=== PATIENT | female | born 1955 | race Two or more races ===

== ENCOUNTER → 2024-04-28 | Outpatient (CLI) | payer MEDICARE, MEDICAID, SELFPAY ==
[2024-04-28 11:50] LABS: Basophils % (Auto) 0 % (0-2.5); Eosinophils # (Auto) 0.2 Thou/mm3 (0.0-0.5); Eosinophils % (Auto) 3 % (0-10); Hemoglobin 11.2 g/dL (12.0-16.0); Immature Granulocytes % (Auto) 0 % (0-0); Immature Granulocytes Auto 0.02 Thou/mm3 (0.00-0.00); Lymphocytes # (Auto) 1.8 Thou/mm3 (1.0-4.8); Lymphocytes % (Auto) 27 % (10-50); Mean Corpuscular HGB Conc 32.9 g/dl (31.0-37.0); Mean Corpuscular Hemoglobin 30.4 pg (25.0-35.0); Mean Corpuscular Volume 92 fL (80-100); Monocytes # (Auto) 0.6 Thou/mm3 (0.0-0.8); Monocytes % (Auto) 9 % (0-12); Neutrophils # (Auto) 4.1 Thou/mm3 (1.8-7.7); Neutrophils % (Auto) 61 % (37-80); Nucleated Red Blood Cell % 0 /100 WBC (0); Platelet Count 169 Thou/mm3 (140-440); RDW Standard Deviation 42.9 fL (36.4-46.3); Red Blood Count 3.68 Miln/mm3 (4.00-5.20); White Blood Count 6.7 Thou/mm3 (3.6-11.0)
[2024-04-28 12:21] LABS: Vitamin D 25 Hydroxy Total 26.6 ng/mL (7.3-40.2)
[2024-04-28 12:23] LABS: Albumin, Serum 3.9 gm/dL (3.4-4.8); Anion Gap 8 (7-16); BUN/Creatinine Ratio 21 Ratio (12-20); Blood Urea Nitrogen 27 mg/dL (9-23); Calcium (Corrected) 9.1 mg/dL (8.5-10.1); Carbon Dioxide 27.2 mMol/L (20.0-31.0); Chloride 101 mMol/L (98-107); Creatinine (Component) 1.3 mg/dL (0.6-1.3); Glucose 306 mg/dL (74-106); Osmolality,Calculated 289 (275-295); Phosphorous 3.2 mg/dL (2.4-5.1); Potassium 4.3 mMol/L (3.4-5.1); Sodium 136 mMol/L (136-145); eGFR 44 See Note
== END | disposition home or self-care (01) ==
LOC: COPL 11:17
PROVIDERS: PCP Family Medicine; Referring Provider Internal Medicine; Visit Provider Internal Medicine
DX: I12.9 Hypertensive chronic kidney disease with stage 1 through stage 4 chronic kidney disease, or unspecified chronic kidney disease (principal); E11.22 Type 2 diabetes mellitus with diabetic chronic kidney disease; N18.31 Chronic kidney disease, stage 3a; R00.0 Tachycardia, unspecified; E56.9 Vitamin deficiency, unspecified; Z85.038 Personal history of other malignant neoplasm of large intestine
CPT/HCPCS: 36415; 80069; 82306; 85025

== ENCOUNTER → 2024-08-15 | Outpatient (CLI) | payer MEDICARE, MEDICAID, SELFPAY ==
[2024-08-15 10:50] LABS: Albumin, Serum 4.1 gm/dL (3.4-4.8); Anion Gap 9 (7-16); BUN/Creatinine Ratio 18 Ratio (12-20); Blood Urea Nitrogen 25 mg/dL (9-23); Calcium 8.7 mg/dL (8.3-10.6); Calcium (Corrected) 8.7 mg/dL (8.5-10.1); Carbon Dioxide 25.7 mMol/L (20.0-31.0); Chloride 105 mMol/L (98-107); Creatinine (Component) 1.4 mg/dL (0.6-1.3); Glucose 141 mg/dL (74-106); Osmolality,Calculated 285 (275-295); Sodium 140 mMol/L (136-145); eGFR 40 See Note
== END | disposition home or self-care (01) ==
LOC: COPL 09:38
PROVIDERS: Referring Provider Internal Medicine; Visit Provider Internal Medicine
DX: I12.9 Hypertensive chronic kidney disease with stage 1 through stage 4 chronic kidney disease, or unspecified chronic kidney disease (principal); E11.22 Type 2 diabetes mellitus with diabetic chronic kidney disease; N18.31 Chronic kidney disease, stage 3a; Z85.038 Personal history of other malignant neoplasm of large intestine; R00.0 Tachycardia, unspecified; E56.9 Vitamin deficiency, unspecified
CPT/HCPCS: 36415; 80069

== ENCOUNTER → 2024-10-23 | Outpatient (CLI) | payer MEDICARE, MEDICAID, SELFPAY ==
[2024-10-23 10:42] LABS: Basophils # (Auto) 0.0 Thou/mm3 (0.0-0.2); Basophils % (Auto) 1 % (0-2.5); Eosinophils # (Auto) 0.1 Thou/mm3 (0.0-0.5); Eosinophils % (Auto) 2 % (0-10); Hematocrit 35.8 % (36.0-46.0); Hemoglobin 11.9 g/dL (12.0-16.0); Immature Granulocytes Auto 0.02 Thou/mm3 (0.00-0.00); Immature Reticulocyte Fraction 11.8 % (3.0-15.9); Lymphocytes # (Auto) 2.0 Thou/mm3 (1.0-4.8); Lymphocytes % (Auto) 28 % (10-50); Mean Corpuscular HGB Conc 33.2 g/dl (31.0-37.0); Mean Corpuscular Hemoglobin 30.6 pg (25.0-35.0); Mean Corpuscular Volume 92 fL (80-100); Monocytes # (Auto) 0.5 Thou/mm3 (0.0-0.8); Monocytes % (Auto) 7 % (0-12); Neutrophils # (Auto) 4.5 Thou/mm3 (1.8-7.7); Neutrophils % (Auto) 63 % (37-80); Nucleated Red Blood Cell # 0.00 Thou/mm3 (0.00-0.00); Nucleated Red Blood Cell % 0 /100 WBC (0); Platelet Count 177 Thou/mm3 (140-440); RDW Standard Deviation 43.3 fL (36.4-46.3); Red Blood Count 3.89 Miln/mm3 (4.00-5.20); Reticulocyte % (Auto) 2.3 % (0.5-1.5); Reticulocyte Absolute Auto 87.9 Biln/L (25.0-75.0); Reticulocyte Hgb Content 33.9 pg (28.0-35.0); White Blood Count 7.1 Thou/mm3 (3.6-11.0)
[2024-10-23 10:53] LABS: Alanine Aminotransferase 31 U/L (10-49); Albumin, Serum 4.5 gm/dL (3.4-4.8); Albumin/Globulin Ratio 1.3 (1.2-2.2); Alkaline Phosphatase 120 U/L (46-116); Anion Gap 9 (7-16); Aspartate Amino Transferase 37 U/L (0-34); BUN/Creatinine Ratio 14 Ratio (12-20); Bilirubin,Total 0.6 mg/dL (0.3-1.2); Blood Urea Nitrogen 18 mg/dL (9-23); Calcium 10.3 mg/dL (8.3-10.6); Calcium (Corrected) 10.3 mg/dL (8.5-10.1); Carbon Dioxide 27.5 mMol/L (20.0-31.0); Chloride 104 mMol/L (98-107); Creatinine (Component) 1.3 mg/dL (0.6-1.3); Globulin 3.6 gm/dL (2.3-3.5); Glucose 182 mg/dL (74-106); Osmolality,Calculated 286 (275-295); Potassium 4.9 mMol/L (3.4-5.1); Sodium 140 mMol/L (136-145); Total Protein 8.1 gm/dL (5.7-8.2); eGFR 44 See Note
[2024-10-23 11:21] LABS: Ferritin 347 ng/mL (7.3-270.7); Folate 18.95 ng/mL (>5.38); Iron 65 mcg/dL (50-170); Percent Iron Saturation 21 % (20-55); Total Iron Binding Capacity 307 mcg/dL (250-425); Unsaturated Iron Binding 242 (225-295); Vitamin B12 536 pg/mL (211-911)
== END | disposition home or self-care (01) ==
LOC: COPL 09:52
PROVIDERS: PCP Physician Assistant; Referring Provider Nurse Practitioner Family; Visit Provider Nurse Practitioner Family
DX: C18.7 Malignant neoplasm of sigmoid colon (principal)
CPT/HCPCS: 36415; 80053; 82607; 82728; 82746; 83540; 83550; 85025; 85046

== ENCOUNTER 2024-10-31 14:19 | Outpatient (RCR) | payer MEDICARE, MEDICAID, SELFPAY ==
--- NOTE | 2024-11-06 02:11 | CTCFLWUP_ITS ---
Patient: DOMINIK CAMPUZANO : 1955 Page 6 of 7 FOLLOW UP NOTE DATE OF SERVICE: 10/31/2024 NAME: DOMINIK CAMPUZANO ACCOUNT: [id number] : 1955 AGE: 69 INTERVAL HISTORY: Patient is here for follow-up ONCOLOGY HISTORY: DIAGNOSIS: Stage IIa (T3, N0) sigmoid colon adenocarcinoma with perineural invasion (11/10/2021), MSI stable S/p adjuvant 5-FU and leucovorin (01/29/2022 - 08/27/2022) History of iron deficiency anemia, status post Venofer. Type 2 diabetes. Hypertension REASON FOR TODAY?S VISIT: This is office follow-up visit for colon cancer. Malignant neoplasm of sigmoid colon [ICD10] C18.7 DATE OF DIAGNOSIS: 11/10/2021 STAGE/TNM: Stage IIa and T3a N0 TREATMENT HISTORY: Care?Plan Start?Date Cycle Day Intent VENOfer?200mg?IV?wkly?for?10?weeks 01/22/2022 1 70 Palliative 5FU?500?LV?20 01/29/2022 1 7 Palliative HISTORY OF PRESENT ILLNESS: Ms. Campuzano is here at [facility]. Patient reports feeling well. Patient denies any concerns or complaints. DEXA from 01/12/2024 shows osteopenia. Patient currently not taking calcium supplements. Patient denies any recent dental work, denies any plans for upcoming dental work. Next surveillance colonoscopy is due 10/2024. Patient reports normal bowel movements. Denies any cough, chest pain, nausea, vomiting or diarrhea. Denies any weight loss or loss of appetite. Denies bloody or black stools. Ambulating well without any help HISTORY: Dominik Campuzano is a 69-year-old SPA speaking female with history of type 2 diabetes as well as hypertension recently had screening colonoscopy and found to have a mass in the sigmoid colon region. 10/08/2021: Ms. Campuzano had colonoscopy and biopsy of the sigmoid colon mass? 11/10/2021: Ms. Campuzano had sigmoid colectomy. 12/22/2021: Hemoglobin 9.9, MCV 83, WBC 8.8, ANC 5.6, platelets 216,000, creatinine 1.3, iron saturation 8%, ferritin 11 12/25/2021: PET/CT scan? 01/01/2022: MSI? 01/22/2022?04/30/2022: Ms. Campuzano completed 2 g of Venofer infusions. 01/29/2022?08/27/2022: Ms. Campuzano treated with adjuvant 5-FU and leucovorin on a weekly regimen. 11/16/2022: CEA 1.1. 12/23/2022: Bilateral mammogram 12/23/2022: ultrasound breast bilateral complete 01/21/2023: Ultrasound right breast 01/23/2023: Right breast diagnostic mammogram 03/01/2023: Hemoglobin 11.2, hematocrit 34.1, MCV 94, ANC 3.9, platelets 174,000, WBC 6.2, CEA 1.4 07/22/2023: Hemoglobin 11.5, hematocrit 33.4, MCV 91, ANC 3.8, platelets 174,000, WBC 6.1, CEA 1.7, iron saturation 27% ferritin 314, B12 is 613, folate is>24.00 11/26/2023: Hemoglobin 10.8, MCV 92, ANC 3.1, platelets 263,003, WBC 5.7, CEA 1.6, iron saturation 20%, ferritin 404, B12 is 577, folate 14.76 01/12/2024: DEXA-osteopenia 01/25/2024: Bilateral mammograms-benign findings 1 year follow-up recommended OTHER MEDICAL HISTORY/CONDITIONS: FAMILY HISTORY: ?Clone Family Hx? 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 alendronate - 35 mg 1 tab one tab po q weekly 2. Citracal + D Slow Release - 600 mg-12.5 mcg (500 unit) 1 tab one tab po twice a day 3. glipizide - 2.5 mg Daily 4. Inderal - 20 mg Daily 5. losartan-hydrochlorothiazide - 50 mg Daily 6. pravastatin - 40 mg Daily?Palabra Meds? Medications Last Reconciled by Dominik Escobedo MA on 01/27/2024 ALLERGIES: No Known Drug Allergies REVIEW OF SYSTEMS: A complete 14-point review of systems was performed and is negative except as noted in interval history. PHYSICAL EXAMINATION: VITAL SIGNS: Temperature?97.7, B/P?129/79, Oxygen?Saturation?97% PAIN: 0 - No pain GENERAL APPEARANCE: Appears well, in no apparent distress, appropriately interactive. HEENT: Normocephalic, no temporal wasting, normal conjunctiva, no scleral icterus, normal hearing, lips without lesions, neck normal range of motion. CARDIOVASCULAR: Not assessed. PULMONARY: Normal respiratory effort, no respiratory distress or use of accessory muscles, speaking in full sentences, no tachypnea. EXTREMITIES: No pedal edema or cyanosis. SKIN: Normal skin appearance. NEUROLOGIC: Alert and oriented x4. PSHYCHIATRIC: Appropriate affect, mood normal, behavior normal, intact thought and speech. LABORATORY DATA: I have personally reviewed and interpreted each of the patient?s relevant lab tests, abnormal findings are below: Date 10/23/24 ??WHITE?BLOOD?COUNT?(Thou/mm3) 7.1 ??RED?BLOOD?COUNT?(Miln/mm3) 3.89?L ??HEMOGLOBIN?(gm/dl) 11.9?L ??HEMATOCRIT?(%) 35.8?L ??PLATELET?COUNT?(Thou/mm3) 177 ??NEUTROPHILS?%,?AUTO?(%) 63 ??LYMPH?%,?AUTO?(%) 28 ??NEUTROPHILS,?AUTO?(Thou/mm3) 4.5 ??GLUCOSE,RANDOM?(mg/dL) 182?H ??BLOOD?UREA?NITROGEN?(mg/dL) 18 ??CREATININE?(mg/dL) 1.30 ??SODIUM?(mmol/L) 140 ??POTASSIUM?(mmol/L) 4.9 ??CHLORIDE?(mmol/L) 104 ??CrCl?(CandG)?(ml/min) 39.75 ??AST/SGOT?(Unit/L) 37?H ??ALT/SGPT?(Unit/L) 31 ??ALKALINE?PHOSPHATASE?(Unit/L) 120?H ??BILIRUBIN,?TOTAL?(mg/dL) 0.6 ??PROTEIN?TOTAL?(gm/dl) 8.1 ??ALBUMIN,?SERUM?(gm/dl) 4.5 ??GLOBULIN?(gm/dl) 3.6?H ??ALBUMIN/GLOBULIN?RATIO 1.3 ??CALCIUM,?SERUM?(mg/dL) 10.3 ??CALCIUM?SERUM?(CORRECTED)?(mg/dL) 10.3?H ??RETICULOCYTE?ABSOLUTE?AUTO?(Biln/L) 87.9?H ??TOTAL?IRON?BINDING?CAP?(S*)?(mcg/dL) 307 ??UNBOUND?IBC?(mcg/dL) 242 ASSESSMENT/PLAN: Colon adenocarcinoma in 2021 Stage II aT3 N0 s/p chemotherapy with 5-FU and leucovorin No evidence of recurrence Gela testing CT scan chest abdomen pelvis with IV contrast every 6 months for 5 years Colonoscopy every 3 years or 5 years once to negative Patient have bone ache as well as hypercalcemia Will do bone scan RTC after the results ORDERS: Order # Description [id number] Bone Scan, Whole body [id number] Bone Scan, Whole body + DXA L-Spine and Hip [id number] CEA [id number] Follow Up 2 Months RETURN TO CLINIC: I reviewed the diagnosis, prognosis, and recommended treatment/procedure options with the patient (and/or their legal territory account representative), including the potential benefits, risks, side effects and alternative therapies. We also discussed the option of no treatment and the possibility of clinical trial participation, if applicable. All questions were addressed, and they demonstrated understanding. They provided informed consent to proceed with the proposed plan of care. BILLING AND COMPLIANCE: I reviewed external records from providers outside my specialty as summarized above. I spent a total of 50 minutes on this patient?s care on the day of their visit excluding time spent related to any billed procedures. This time includes time spent with the patient as well as time spent documenting in the medical record, reviewing patients records and tests, obtaining history, placing orders, communicating with other healthcare professionals, counseling the patient, family or caregiver, and/or care coordination for the diagnoses above. Electronically Signed by: Alec Valdivia MD T: 2:09 AM CC: Yg?Spring,? PCP: Skinny Birmingham Referring: Skinny Birmingham This document was completed utilizing speech recognition software. Grammatical errors, random word insertions, pronoun errors, and incomplete sentences are an occasional consequence of this system due to software limitations, ambient noise, and hardware issues. Any formal questions or concerns about the content, text or information contained within the body of this dictation should be directly addressed to the provider for clarification.
== END 2024-11-26 23:59 | disposition home or self-care (01) ==
LOC: SCTC 14:19
PROVIDERS: PCP Nurse Practitioner Family; Referring Provider Family Medicine; Visit Provider Internal Medicine Hematology & Oncology
DX: Z08 Encounter for follow-up examination after completed treatment for malignant neoplasm (principal); Z85.038 Personal history of other malignant neoplasm of large intestine; Z90.49 Acquired absence of other specified parts of digestive tract; E83.52 Hypercalcemia
CPT/HCPCS: 99213; G0463

== ENCOUNTER → 2024-12-05 | Outpatient (CLI) | payer MEDICARE, MEDICAID, SELFPAY ==
--- NOTE | 2024-12-05 | XR_ITS ---
Examination: Bone scan whole body, radioisotope Date and time of exam: December 05, 2024 0845 hours INDICATIONS: Diagnosis malignant neoplasm sigmoid colon, post chemotherapy 2 years ago, restaging Technique: Study has been performed with intravenous administration of 24.6 mci 99M technetium MDP. Anterior, posterior whole body images are obtained. Images have been obtained including the lower extremities. Findings: Asymmetric uptake over the left knee Mild increased uptake about the ankles Subtle increased uptake right hip IMPRESSION: Positive bone scan but not specific for osseous metastatic disease Recommend AP pelvis right hip films follow-up
== END | disposition home or self-care (01) ==
LOC: SNUC 08:09
PROVIDERS: Referring Provider Internal Medicine Hematology & Oncology; Visit Provider Internal Medicine Hematology & Oncology
DX: R93.7 Abnormal findings on diagnostic imaging of other parts of musculoskeletal system (principal); C18.7 Malignant neoplasm of sigmoid colon
CPT/HCPCS: 78306; A9503

== ENCOUNTER 2025-01-02 10:20 | Outpatient (RCR) | payer MEDICARE, MEDICAID, SELFPAY ==
--- NOTE | 2025-01-02 11:17 | CTCFLWUP_ITS ---
Patient: DOMINIK CAMPUZANO : 1955 Page 6 of 8 FOLLOW UP NOTE DATE OF SERVICE: 01/02/2025 NAME: DOMINIK CAMPUZANO ACCOUNT: [id number] : 1955 AGE: 69 INTERVAL HISTORY: Patient is here for follow-up. Patient is here to follow-up on scanning results. No new complaints. Do not take calcium supplement as last time her calcium was high. No new change in her appetite or bowel and bladder habits. Weight is stable ONCOLOGY HISTORY: DIAGNOSIS: Stage IIa (T3, N0) sigmoid colon adenocarcinoma with perineural invasion (11/10/2021), MSI stable S/p adjuvant 5-FU and leucovorin (01/29/2022 - 08/27/2022) History of iron deficiency anemia, status post Venofer. Type 2 diabetes. Hypertension REASON FOR TODAY?S VISIT: This is office follow-up visit for colon cancer. Malignant neoplasm of sigmoid colon [ICD10] C18.7 DATE OF DIAGNOSIS: 11/10/2021 STAGE/TNM: Stage IIa and T3a N0 TREATMENT HISTORY: Care?Plan Start?Date Cycle Day Intent VENOfer?200mg?IV?wkly?for?10?weeks 01/22/2022 1 70 Palliative 5FU?500?LV?20 01/29/2022 1 7 Palliative HISTORY OF PRESENT ILLNESS: Ms. Campuzano is here at [facility]. Patient reports feeling well. Patient denies any concerns or complaints. DEXA from 01/12/2024 shows osteopenia. Patient currently not taking calcium supplements. Patient denies any recent dental work, denies any plans for upcoming dental work. Next surveillance colonoscopy is due 10/2024. Patient reports normal bowel movements. Denies any cough, chest pain, nausea, vomiting or diarrhea. Denies any weight loss or loss of appetite. Denies bloody or black stools. Ambulating well without any help HISTORY: Dominik Campuzano is a 69-year-old SPA speaking female with history of type 2 diabetes as well as hypertension recently had screening colonoscopy and found to have a mass in the sigmoid colon region. 10/08/2021: Ms. Campuzano had colonoscopy and biopsy of the sigmoid colon mass? 11/10/2021: Ms. Campuzano had sigmoid colectomy. 12/22/2021: Hemoglobin 9.9, MCV 83, WBC 8.8, ANC 5.6, platelets 216,000, creatinine 1.3, iron saturation 8%, ferritin 11 12/25/2021: PET/CT scan? 01/01/2022: MSI? 01/22/2022?04/30/2022: Ms. Campuzano completed 2 g of Venofer infusions. 01/29/2022?08/27/2022: Ms. Campuzano treated with adjuvant 5-FU and leucovorin on a weekly regimen. 11/16/2022: CEA 1.1. 12/23/2022: Bilateral mammogram 12/23/2022: ultrasound breast bilateral complete 01/21/2023: Ultrasound right breast 01/23/2023: Right breast diagnostic mammogram 03/01/2023: Hemoglobin 11.2, hematocrit 34.1, MCV 94, ANC 3.9, platelets 174,000, WBC 6.2, CEA 1.4 07/22/2023: Hemoglobin 11.5, hematocrit 33.4, MCV 91, ANC 3.8, platelets 174,000, WBC 6.1, CEA 1.7, iron saturation 27% ferritin 314, B12 is 613, folate is>24.00 11/26/2023: Hemoglobin 10.8, MCV 92, ANC 3.1, platelets 263,003, WBC 5.7, CEA 1.6, iron saturation 20%, ferritin 404, B12 is 577, folate 14.76 01/12/2024: DEXA-osteopenia 01/25/2024: Bilateral mammograms-benign findings 1 year follow-up recommended OTHER MEDICAL HISTORY/CONDITIONS: FAMILY HISTORY: 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 alendronate - 35 mg 1 tab one tab po q weekly 2. Citracal + D Slow Release - 600 mg-12.5 mcg (500 unit) 1 tab one tab po twice a day 3. glipizide - 2.5 mg Daily 4. Inderal - 20 mg Daily 5. losartan-hydrochlorothiazide - 50 mg Daily 6. pravastatin - 40 mg Daily Medications Last Reconciled by Dominik Escobedo MA on 01/27/2024 ALLERGIES: No Known Drug Allergies REVIEW OF SYSTEMS: A complete 14-point review of systems was performed and is negative except as noted in interval history. PHYSICAL EXAMINATION: VITAL SIGNS: PAIN: 0 - No pain ECOG Performance Status: 0 - Asymptomatic and fully active GENERAL APPEARANCE: Appears well, in no apparent distress, appropriately interactive. HEENT: Normocephalic, no temporal wasting, normal conjunctiva, no scleral icterus, normal hearing, lips without lesions, neck normal range of motion. CARDIOVASCULAR: Not assessed. PULMONARY: Normal respiratory effort, no respiratory distress or use of accessory muscles, speaking in full sentences, no tachypnea. EXTREMITIES: No pedal edema or cyanosis. SKIN: Normal skin appearance. NEUROLOGIC: Alert and oriented x4. PSHYCHIATRIC: Appropriate affect, mood normal, behavior normal, intact thought and speech. LABORATORY DATA: I have personally reviewed and interpreted each of the patient?s relevant lab tests, abnormal findings are below: Date 10/23/24 ??WHITE?BLOOD?COUNT?(Thou/mm3) 7.1 ??RED?BLOOD?COUNT?(Miln/mm3) 3.89?L ??HEMOGLOBIN?(gm/dl) 11.9?L ??HEMATOCRIT?(%) 35.8?L ??PLATELET?COUNT?(Thou/mm3) 177 ??NEUTROPHILS?%,?AUTO?(%) 63 ??LYMPH?%,?AUTO?(%) 28 ??NEUTROPHILS,?AUTO?(Thou/mm3) 4.5 ??GLUCOSE,RANDOM?(mg/dL) 182?H ??BLOOD?UREA?NITROGEN?(mg/dL) 18 ??CREATININE?(mg/dL) 1.30 ??SODIUM?(mmol/L) 140 ??POTASSIUM?(mmol/L) 4.9 ??CHLORIDE?(mmol/L) 104 ??CrCl?(CandG)?(ml/min) 39.75 ??AST/SGOT?(Unit/L) 37?H ??ALT/SGPT?(Unit/L) 31 ??ALKALINE?PHOSPHATASE?(Unit/L) 120?H ??BILIRUBIN,?TOTAL?(mg/dL) 0.6 ??PROTEIN?TOTAL?(gm/dl) 8.1 ??ALBUMIN,?SERUM?(gm/dl) 4.5 ??GLOBULIN?(gm/dl) 3.6?H ??ALBUMIN/GLOBULIN?RATIO 1.3 ??CALCIUM,?SERUM?(mg/dL) 10.3 ??CALCIUM?SERUM?(CORRECTED)?(mg/dL) 10.3?H ??RETICULOCYTE?ABSOLUTE?AUTO?(Biln/L) 87.9?H ??TOTAL?IRON?BINDING?CAP?(S*)?(mcg/dL) 307 ??UNBOUND?IBC?(mcg/dL) 242 ASSESSMENT/PLAN: Colon adenocarcinoma in 2021 Stage II aT3 N0 s/p chemotherapy with 5-FU and leucovorin No evidence of recurrence Naterra is pending CT scan chest abdomen pelvis with IV contrast every 6 months for 5 years Colonoscopy every 3 years or 5 years once to negative Patient have bone ache as well as hypercalcemia Bone scan shows arthritis Patient do not have any complaints with the pain in the right upper quadrant or abdominal discomfort. Patient's alk phos is mildly elevated Will get a bone density and if needed start her on Zometa Advised to follow-up with her kidney specialist to make sure her anemia is not associated from her kidney disease Patient's iron studies B12 folic acid all within normal limit Will check erythropoietin level RTC 6 months ORDERS: Order # Description [id number] 3D Mammogram Screening + Bilateral [id number] Comprehensive Metabolic Panel - 12 + CBC with Auto Diff + CEA [id number] Erythropoieten Level [id number] MD Follow Up 6 Month RETURN TO CLINIC: I reviewed the diagnosis, prognosis, and recommended treatment/procedure options with the patient (and/or their legal field representative), including the potential benefits, risks, side effects and alternative therapies. We also discussed the option of no treatment and the possibility of clinical trial participation, if applicable. All questions were addressed, and they demonstrated understanding. They provided informed consent to proceed with the proposed plan of care. BILLING AND COMPLIANCE: I reviewed external records from providers outside my specialty as summarized above. I spent a total of 50 minutes on this patient?s care on the day of their visit excluding time spent related to any billed procedures. This time includes time spent with the patient as well as time spent documenting in the medical record, reviewing patients records and tests, obtaining history, placing orders, communicating with other healthcare professionals, counseling the patient, family or caregiver, and/or care coordination for the diagnoses above. Electronically Signed by: Alec Valdivia MD T: 11:14 AM CC: Yg?Spring? PCP: Alec Valdivia Referring: Alec Valdivia This document was completed utilizing speech recognition software. Grammatical errors, random word insertions, pronoun errors, and incomplete sentences are an occasional consequence of this system due to software limitations, ambient noise, and hardware issues. Any formal questions or concerns about the content, text or information contained within the body of this dictation should be directly addressed to the provider for clarification.
== END 2025-01-26 23:59 | disposition home or self-care (01) ==
LOC: SCTC 10:20
PROVIDERS: PCP Nurse Practitioner Family; Referring Provider Internal Medicine Hematology & Oncology; Visit Provider Internal Medicine Hematology & Oncology
DX: Z08 Encounter for follow-up examination after completed treatment for malignant neoplasm (principal); Z85.038 Personal history of other malignant neoplasm of large intestine; Z92.21 Personal history of antineoplastic chemotherapy; E83.52 Hypercalcemia; M19.90 Unspecified osteoarthritis, unspecified site; Z86.2 Personal history of diseases of the blood and blood-forming organs and certain disorders involving the immune mechanism; R74.8 Abnormal levels of other serum enzymes
CPT/HCPCS: 99213; G0463

== ENCOUNTER → 2025-01-26 | Outpatient (CLI) | payer MEDICARE, MEDICAID, SELFPAY ==
--- NOTE | 2025-01-26 09:00 | XR_ITS ---
Examination: Screening digital mammography, bilateral Computer aided detection 3-D breast Tomosynthesis, bilateral Date and time of exam: January 26, 2025, 0851 hours, compared to mammograms dating to January 22, 2017 Indication: Screening Technique: Nonmagnified MLO, CC views of the breasts to been obtained, reconstructed from 3-D Tomosynthesis images. R2 computer aided detection program utilized for evaluation of suspicious masses and/or abnormal calcifications. 3-D Tomosynthesis images obtained. Findings: The breasts are heterogeneously dense, which may obscure small masses Skin lesion inner left breast 10 mm focal asymmetry retroareolar region right breast Impression: BI-RADS Category 0: Incomplete: Need additional imaging evaluation Recommend follow-up spot tomographic views of 10 mm focal asymmetry retroareolar region right breast as well as bilateral breast sonography to complete work-up
== END | disposition home or self-care (01) ==
LOC: CDIM 08:42
PROVIDERS: PCP Family Medicine; Referring Provider Internal Medicine Hematology & Oncology; Visit Provider Internal Medicine Hematology & Oncology
DX: Z12.31 Encounter for screening mammogram for malignant neoplasm of breast (principal); R92.8 Other abnormal and inconclusive findings on diagnostic imaging of breast; N64.89 Other specified disorders of breast; C18.7 Malignant neoplasm of sigmoid colon
CPT/HCPCS: 77063; 77067

== ENCOUNTER → 2025-02-02 | Outpatient (CLI) | payer MEDICARE, MEDICAID, SELFPAY ==
[2025-02-02 10:38] LABS: Basophils # (Auto) 0.0 Thou/mm3 (0.0-0.2); Basophils % (Auto) 1 % (0-2.5); Eosinophils # (Auto) 0.2 Thou/mm3 (0.0-0.5); Eosinophils % (Auto) 2 % (0-10); Hematocrit 34.8 % (36.0-46.0); Hemoglobin 11.5 g/dL (12.0-16.0); Immature Granulocytes Auto 0.05 Thou/mm3 (0.00-0.00); Lymphocytes # (Auto) 2.3 Thou/mm3 (1.0-4.8); Lymphocytes % (Auto) 33 % (10-50); Mean Corpuscular HGB Conc 33.0 g/dl (31.0-37.0); Mean Corpuscular Hemoglobin 30.0 pg (25.0-35.0); Mean Corpuscular Volume 91 fL (80-100); Monocytes # (Auto) 0.5 Thou/mm3 (0.0-0.8); Monocytes % (Auto) 8 % (0-12); Neutrophils # (Auto) 3.9 Thou/mm3 (1.8-7.7); Neutrophils % (Auto) 56 % (37-80); Nucleated Red Blood Cell # 0.00 Thou/mm3 (0.00-0.00); Nucleated Red Blood Cell % 0 /100 WBC (0); Platelet Count 181 Thou/mm3 (140-440); RDW Standard Deviation 40.6 fL (36.4-46.3); Red Blood Count 3.83 Miln/mm3 (4.00-5.20); White Blood Count 7.0 Thou/mm3 (3.6-11.0)
[2025-02-02 10:54] LABS: Albumin, Serum 4.3 gm/dL (3.4-4.8); Anion Gap 7 (7-16); BUN/Creatinine Ratio 17 Ratio (12-20); Blood Urea Nitrogen 20 mg/dL (9-23); Calcium 9.5 mg/dL (8.3-10.6); Calcium (Corrected) 9.5 mg/dL (8.5-10.1); Carbon Dioxide 27.0 mMol/L (20.0-31.0); Chloride 104 mMol/L (98-107); Creatinine (Component) 1.2 mg/dL (0.6-1.3); Glucose 157 mg/dL (74-106); Osmolality,Calculated 281 (275-295); Phosphorous 3.5 mg/dL (2.4-5.1); Potassium 5.0 mMol/L (3.4-5.1); Sodium 138 mMol/L (136-145); eGFR 48 See Note
== END | disposition home or self-care (01) ==
LOC: COPL 09:40
PROVIDERS: PCP Family Medicine; Referring Provider Internal Medicine; Visit Provider Internal Medicine
DX: I12.9 Hypertensive chronic kidney disease with stage 1 through stage 4 chronic kidney disease, or unspecified chronic kidney disease (principal); E11.22 Type 2 diabetes mellitus with diabetic chronic kidney disease; N18.31 Chronic kidney disease, stage 3a; E11.65 Type 2 diabetes mellitus with hyperglycemia; E56.9 Vitamin deficiency, unspecified; Z85.038 Personal history of other malignant neoplasm of large intestine
CPT/HCPCS: 36415; 80069; 85025